=== PATIENT | female | born 1950 | race Caucasian/White ===

== ENCOUNTER 2017-09-11 13:59 | Emergency (ER) | payer OTHER ==
[~2017-09-11] VITALS: Ht 172.7 cm; Wt 70.8 kg
[2017-09-11] MEDS ORDERED: ATIVAN0.5 MG (16:51)
[2017-09-11] MEDS ORDERED: ZOLOFT50 MG (16:51)
[2017-09-11] MEDS ORDERED: ESTAZOLAM2 MG (16:51)
[2017-09-11] MEDS ORDERED: HYZAAR 100-12.1 EACH PO (20:35)
== END 2017-09-11 20:46 | disposition home or self-care (01) ==
LOC: ER 13:59
DX: I10 Essential (primary) hypertension (principal)

== ENCOUNTER 2022-05-08 07:52 | Day surgery (SDC) | payer OTHER ==
[~2022-05-08 07:52] MED LIST: ATIVAN0.5 MG; ESTAZOLAM2 MG; HYZAAR 100-12.1 EACH PO; ZOLOFT50 MG
== END 2022-05-08 13:10 | disposition home or self-care (01) ==
LOC: AMB-ENDOS 07:52 → CIR.AMB 14:15
PROVIDERS: ATTEND Colon & Rectal Surgery
DX: D12.7 Benign neoplasm of rectosigmoid junction (principal); D12.2 Benign neoplasm of ascending colon; D12.0 Benign neoplasm of cecum; D12.5 Benign neoplasm of sigmoid colon; K62.1 Rectal polyp; K57.90 Diverticulosis of intestine, part unspecified, without perforation or abscess without bleeding; K64.8 Other hemorrhoids; Z88.0 Allergy status to penicillin; Z20.822 Contact with and (suspected) exposure to COVID-19

== ENCOUNTER 2022-08-14 08:10 | Day surgery (SDC) | payer OTHER | END 2022-08-14 14:30 | disposition home or self-care (01) | LOC: AMB-ENDOS 08:10 | PROVIDERS: ATTEND Colon & Rectal Surgery | DX: K63.5 Polyp of colon (principal); K62.1 Rectal polyp; K64.8 Other hemorrhoids; Z88.0 Allergy status to penicillin; Z20.822 Contact with and (suspected) exposure to COVID-19 ==

== ENCOUNTER 2023-01-15 06:31 | Day surgery (SDC) | payer OTHER | END 2023-01-15 11:15 | disposition home or self-care (01) | LOC: AMB-ENDOS 06:31 | PROVIDERS: ATTEND Colon & Rectal Surgery | DX: D12.2 Benign neoplasm of ascending colon (principal); D12.4 Benign neoplasm of descending colon; K64.8 Other hemorrhoids; Z20.822 Contact with and (suspected) exposure to COVID-19 ==

== ENCOUNTER 2025-05-04 08:00 | Day surgery (SDC) | payer OTHER ==
[2025-05-04] MEDS ORDERED: ONDANSETRON HCL 2 MG/ML VIAL IV ONE (09:45)
[2025-05-04] MEDS ORDERED: fentaNYL CITRATE 50 MCG/ML AMPUL IV PUSH ONE (09:45)
[2025-05-04] MEDS ORDERED: DIPHENHYDRAMINE HCL 50 MG/ML VIAL 1ML IV ONE (09:45)
[2025-05-04] MEDS ORDERED: MIDAZOLAM HCL 2 MG/2 ML VIAL IV ONE (09:45)
== END 2025-05-04 11:29 | disposition home or self-care (01) ==
LOC: AMB-ENDOS 08:00
PROVIDERS: ATTEND Colon & Rectal Surgery
DX: D12.3 Benign neoplasm of transverse colon (principal); K63.5 Polyp of colon; K62.1 Rectal polyp; K57.30 Diverticulosis of large intestine without perforation or abscess without bleeding; Z88.0 Allergy status to penicillin